=== PATIENT | male | born 1940 | race Caucasian/White ===

== ENCOUNTER 2017-11-26 08:04 | Day surgery (SDC) | payer OTHER ==
[~2017-11-26] VITALS: Ht 170.2 cm; Wt 75.0 kg
[~2017-11-26 08:04] MED LIST: AMIT50TA3 PO; BUSP10TA PO; CLON1TAB PO; CYAN100025 SL; LISI20TA PO; MORP1TAB25 PO; OMEP20TA93 PO; TANDCAP PO; [UNRECOGNIZED DRUG - CODE] SL
[2017-11-26 08:30] VITALS: BP 128/75; PULSE 63; RESP 18; TEMP 97.7; O2SAT 100
[2017-11-26] MEDS ORDERED: SODIUM CHLORIDE 0.9% 1000 ML IV SCH (08:30)
[2017-11-26] MEDS ORDERED: ceFAZolin 2 GM PREMIX 50 ML - implanted port/tunneled catheter insertion IV SCH (08:30)
[2017-11-26] MEDS ORDERED: ceFAZolin 2 GM PREMIX 50 ML - implanted port removal IV SCH (08:30)
[2017-11-26] MEDS ORDERED: POVIDONE IODINE 5% (ANTISEPSIS KIT) 4 APPLICATIONS EACH NARE SCH (08:30)
[2017-11-26] MEDS ORDERED: CHLORHEXIDINE GLUCONATE 2 % 1 PACK (2 CLOTHS) TOPICAL SCH (08:30)
[2017-11-26] MEDS ORDERED: VANCOMYCIN 1000 MG/NS 250 ML - implanted port/tunneled catheter IV SCH ×2 (08:30)
[2017-11-26] MEDS ORDERED: LIDOCAINE 1%/EPINEPHrine 1:100,000 SOLN 20 ML VIAL ONE (10:21)
[2017-11-26] MEDS ORDERED: fentaNYL CITRATE 250 MCG/5 ML AMP ONE (10:29)
[2017-11-26] MEDS ORDERED: MIDAZOLAM HCL 5 MG/5 ML VIAL ONE (10:30)
--- NOTE | 2017-11-26 11:32 | PD.RAD ---
Post Procedure Progress Note Pre Procedure Diagnosis: (1) HCC (hepatocellular carcinoma) (2) Pancytopenia Post Procedure Diagnosis: (1) Pancytopenia (2) HCC (hepatocellular carcinoma) Procedure Date: November 26, 2017 Supervising Radiologist: Jh James Proceduralist/Assist: Rose Mary Coronel, RT(R)(), Luis Antonio Mar RT(R) Anesthesia: Local, Analgesia, Conscious Sedation Plan of Activity Patient to Unit: ROPU Patient Condition: Good See PACS Report for procedural detail/treatment Central Venous Access Device Procedure 1 Right Internal Jugular Infusaport Placement single lumen Nam[place]ian: 8 Jh James MD November 26, 2017 11:32
[2017-11-26 11:35] VITALS: BP 120/66; PULSE 71; RESP 20; TEMP 97.5; O2SAT 93
[2017-11-26] MEDS ORDERED: SODIUM CHLORIDE 0.9% FLUSH 10 ML FLUSH IVF PRN (11:45)
[2017-11-26 11:50] VITALS: BP 123/72; PULSE 71; RESP 20; O2SAT 93
[2017-11-26 12:15] VITALS: BP 118/64; PULSE 71; RESP 20; O2SAT 94
[2017-11-26 12:45] VITALS: BP 119/69; PULSE 63; RESP 20; O2SAT 92
[2017-11-26 13:15] VITALS: BP 120/69; PULSE 63; RESP 20; O2SAT 94
--- NOTE | 2017-11-26 13:51 | RADRPT ---
EXAM DATE/TIME: 11/26/2017 11:22 [facility] COMPARISON: No previous studies available for comparison. INDICATIONS : Patient with a history of hepatocellular carcinoma. MEDICAL HISTORY : Anxiety Arthritis Bleeding problems Hepatocellular carcinoma Cirrhosis GERD Hemorrhoids Hep C Osteoarthritis SURGICAL HISTORY : Colonoscopy ENCOUNTER: Initial ACUITY: 2 weeks PAIN SCORE: 2/10 LOCATION: Right side FLUORO TIME: 0.30 minutes IMAGE SERIES: 1 SEDATION TIME: 30 minutes ACCESS: Right internal jugular vein SEDATION: 1.) 2.5 mg midazolam (Versed) IV 2.) 125 mcg fentanyl (Sublimaze) IV 3.) 1units Platelets IV Prophylactic antibiotics were administered with appropriate pre-procedure timing. Vancomycin within 2 hours of procedure, Ancef (or alternative) within 1 hour of procedure. DEVICE: 1. 8 Estonian single lumen Power port PROCEDURE : 1. Continuous pulse oximetry and EKG monitoring. 2. Intravenous conscious sedation. 3. Ultrasound guidance for venous access. 4. Fluoroscopic guided implantable central venous port placement. The patient was placed supine. The neck was prepped in sterile fashion. Full sterile technique was u sed, including cap, mask, sterile gloves and gown, and a large sterile sheet. Hand hygiene and 2% ch lorhexidine Betadine was utilized per protocol for cutaneous antisepsis with appropriate dry time for site. Sterile gel and sterile probe cover were utilized for ultrasound guidance. The skin and sub cutaneous tissues were infiltrated with local anesthetic solution. Patient's platelet count was around 50,000. A unit of platelets was ordered and infused during the pr ocedure to minimize bleeding. Under direct ultrasound guidance, central venous access was accomplished in the targeted vessel. The ultrasound images depicting access guidance were stored and saved to PACS for permanent record. A s ubcutaneous pocket was created using blunt dissection. The port was introduced to the pocket. The c atheter tubing was fed through a subcutaneous tunnel to the venotomy site. The catheter tubing was c ut to a suitable length and then was introduced through a valved Peel-Away sheath and positioned with catheter tubing tip at the cavo-atrial junction level. The pocket incision was closed with subcutic ular Vicryl suture. Steri-Strips were applied. The port was flushed and locked with heparin solutio n per protocol. Sterile dressing was applied to the site. The patient tolerated the procedure well. Conscious sedation was performed with the prescribed dosages and duration as above in the presence of an independent trained radiology nurse to assist in the monitoring of the patient. EKG and oximetry remained stable throughout the procedure. The patient tolerated the procedure well and there were no complications. The patient was sent to post anesthesia recovery in stable condition. CONCLUSION: Uncomplicated ultrasound and fluoroscopic guided implanted central venous port catheter placement as described in detail above. An 8 Estonian Power port was placed. Jh James MD on November 26, 2017 at 13:48 Board Certified Radiologist. This report was verified electronically.
== END 2017-11-26 13:45 | disposition home or self-care (01) ==
LOC: HRIP 08:04 → HROP 08:04
PROVIDERS: ATTEND Internal Medicine
DX: Z45.2 Encounter for adjustment and management of vascular access device (principal); C22.0 Liver cell carcinoma; D61.818 Other pancytopenia; B19.20 Unspecified viral hepatitis C without hepatic coma; K74.60 Unspecified cirrhosis of liver; K21.9 Gastro-esophageal reflux disease without esophagitis; M19.90 Unspecified osteoarthritis, unspecified site; F41.9 Anxiety disorder, unspecified
CPT/HCPCS: 36561; 76937; 77001; 99152; 99153; C1788; J0690; J1642; J2250; J3010; J3370; J7030; J7050; P9035; 36430

== ENCOUNTER 2017-12-01 08:22 | Day surgery (SDC) | payer OTHER ==
[~2017-12-01] VITALS: Ht 170.2 cm; Wt 75.0 kg
[2017-12-01 09:06] VITALS: BP 117/69; PULSE 73; RESP 18; TEMP 97.5; O2SAT 95
[2017-12-01] MEDS ORDERED: SODIUM CHLOR 0.9% 1000 ML IV SCH (09:30)
[2017-12-01] MEDS ORDERED: fentaNYL CITRATE 250 MCG/5 ML AMP ONE (09:54)
[2017-12-01] MEDS ORDERED: MIDAZOLAM HCL 5 MG/5 ML VIAL ONE (09:55)
[2017-12-01 10:21] LABS: AUTOMATED NEUTROPHIL # 0.6 TH/MM3 (1.8-7.7); BASOPHIL % 0.5 % (0.0-2.0); EOSINOPHIL % 3.4 % (0.0-4.0); HEMATOCRIT 21.3 % (39.0-51.0); LYMPH % 18.4 % (9.0-44.0); LYMPHOCYTE # 0.2 TH/MM3 (1.0-4.8); MEAN CELL VOLUME 81.4 FL (80.0-100.0); MEAN CORPUSCULAR HEMOGLOBIN 26.7 PG (27.0-34.0); MEAN CORPUSCULAR HGB CONC 32.8 % (32.0-36.0); MEAN PLATELET VOLUME 9.6 FL (7.0-11.0); MONO % 9.3 % (0.0-8.0); MONOCYTE # 0.1 TH/MM3 (0-0.9); NEUT % 68.4 % (16.0-70.0); PLATELET COUNT 41 TH/MM3 (150-450); RED BLOOD COUNT 2.62 MIL/MM3 (4.50-5.90); RED CELL DISTRIBUTION WIDTH 16.3 % (11.6-17.2); WHITE BLOOD COUNT 0.8 TH/MM3 (4.0-11.0)
[2017-12-01] MEDS ORDERED: LIDOCAINE HCL 1% 20 ML VIAL ONE (10:35)
[2017-12-01 10:59] LABS: BANDS 8 % (0-6); LYMPHOCYTES 12 % (9-44); MONOCYTES 10 % (0-8); NEUTROPHIL # MANUAL DIFF 0.6 TH/MM3 (1.8-7.7); OVALOCYTES 2+ (NORMAL); POLYS (SEG NEUTROPHILS) 64 % (16-70)
--- NOTE | 2017-12-01 12:02 | PD.RAD ---
Post Procedure Progress Note Pre Procedure Diagnosis: (1) HCC (hepatocellular carcinoma) (2) Pancytopenia Post Procedure Diagnosis: (1) HCC (hepatocellular carcinoma) (2) Pancytopenia Procedure Date: December 01, 2017 Supervising Radiologist: Ivan Nvees Estimated blood loss: 3cc Anesthesia: Local, Conscious Sedation Plan of Activity Patient to Unit: ROPU Patient Condition: Fair Additional Comments: Successful bone marrow biopsy of the right Iliac wing Samples sent to pathology Full dictated report to follow See PACS Report for procedural detail/treatment Ivan Neves MD December 01, 2017 12:02
[2017-12-01 12:15] VITALS: BP 126/71; PULSE 69; RESP 18; TEMP 98; O2SAT 97
[2017-12-01 12:30] VITALS: BP 124/69; PULSE 65; RESP 18; O2SAT 92
[2017-12-01 13:00] VITALS: BP 115/60; PULSE 67; RESP 18; O2SAT 98
--- NOTE | 2017-12-01 13:21 | RADRPT ---
EXAM DATE/TIME: 12/01/2017 11:24 [facility] COMPARISON: CT NEEDLE BIOPSY BONE MARROW, October 08, 2017, 11:59. INDICATIONS : Bone marrow biopsy. SEDATION TIME: 45 minutes BIOPSY SITE: Right iliac MEDICATION(S): 1.) 3 mg midazolam (Versed) IV 2.) 150 mcg fentanyl (Sublimaze) IV DEVICE(S): 1.) 11 gauge Bone marrow biopsy needle MEDICAL HISTORY : Hepatitis C. liver cancer, pancytopenia SURGICAL HISTORY : None. ENCOUNTER: Initial ACUITY: 1 day PAIN SCORE: 0/10 LOCATION: Right iliac A total of one core specimen(s) were obtained and sent to the laboratory for pathologic evaluation. PROCEDURE: 1. CT guided bone marrow biopsy. 2. Conscious sedation with continuous EKG and oximetry monitoring. 3. EKG and oximetry remained stable throughout the procedure. Prior to the procedure informed consent was obtained. Any appropriate prior imaging studies were rev iewed. Using automated exposure control and adjustment of the mA and/or kV according to patient size , radiation dose was kept as low as reasonably achievable to obtain optimal diagnostic quality images . DICOM format image data is available electronically for review and comparison. The site was prepped in a sterile fashion. Full sterile technique was used, including cap, mask, tomasa rile gloves and gown and a large sterile sheet. Hand hygiene and 2% chlorhexidine and/or betadine/al cohol prep was utilized per protocol for cutaneous antisepsis. The skin and subcutaneous tissues wer e infiltrated with local anesthetic solution. With CT guidance the previously identified target was localized. Biopsy was performed using the presc ribed needle as above. Following biopsy marrow aspiration was performed with repeat puncture. Adequa te hemostasis was obtained with compression at the puncture site. Follow-up CT scan reveals no hemorrhage. Conscious sedation was performed with the prescribed dosages and duration as above in the presence of an independent trained radiology nurse to assist in the monitoring of the patient. EKG and oximetry remained stable throughout the procedure. The patient tolerated the procedure well and there were no complications. The patient was sent to Radiology Outpatient Unit in stable condition. CONCLUSION: 1. Uncomplicated CT guided bone marrow aspirate. 2. Uncomplicated CT guided bone marrow biopsy. Ivan Neves MD on December 01, 2017 at 13:17 Board Certified Radiologist. This report was verified electronically.
[2017-12-01 13:30] VITALS: BP 120/66; PULSE 68; RESP 18; O2SAT 99
== END 2017-12-01 14:00 | disposition home or self-care (01) ==
LOC: HRAD 08:22 → HRIP 08:23 → HRAD 14:00
PROVIDERS: ATTEND Internal Medicine
DX: C22.0 Liver cell carcinoma (principal); D61.818 Other pancytopenia; B19.20 Unspecified viral hepatitis C without hepatic coma; K74.60 Unspecified cirrhosis of liver; D64.9 Anemia, unspecified; Z79.82 Long term (current) use of aspirin
CPT/HCPCS: 38222; 77012; 85007; 85027; 85097; 88184; 88185; 88237; 88264; 88280; 88305; 88311; 88313; 99152; 99153; C1830; J1642; J2250; J3010; J7030

== ENCOUNTER 2018-01-12 14:22 | Day surgery (SDC) | payer OTHER ==
[2018-01-12 14:39] VITALS: BP 137/56; PULSE 74; RESP 18; TEMP 97.5; O2SAT 96
[2018-01-13] MEDS ORDERED: MSIR30 PO (10:04)
--- NOTE | 2018-01-13 11:19 | RADRPT ---
EXAM DATE: 01/13/2018 9:33 AM EDT AGE/SEX: 77 years / Male INDICATIONS: PT IS SCHEDULE FOR AN ANGIO WITH CHEMO EMBOLIZATION HISTORY OF PRESENT ILLNESS: 77-year-old male with history of EtOH and hepatitis C cirrhosis with 4.4 cm hepatocellular carcinoma in segment 2 of the liver. Patient is status post intramedullary emboliz ation at [facility] last year with apparent moderately severe post embolic syndrome. Most recent PET/CT examination performed in October demonstrates persistence prominent PET activity in this lesion without evidence for extrahepatic disease. Despite cirrhosis and evidence for portal hypertension on imaging, liver function tests are within normal limits although patient does have thrombocytopenia. He has an excellent functional status (ECOG 0) and is accompanied by his on this visit. TEMPERATURE: 97.5 HEART RATE: 74 BLOOD PRESSURE: 137/56 RESPIRATIONS: 18 OXIMETRY: 96 PNEUMONIA VACCINE: 2017 MEDICAL/SURGICAL HISTORY: Hypertension. PT IS SCHEDULE TOMORROW FOR A LIVER MASS EMBOLIZATION P ARTIAL LEFT NEPHRECTOMY COMPARISON: [facility], PET/CT TUMOR, 10/28/2017. . SOCIAL HISTORY: No alcohol use. SMOKING HISTORY: ALLERGIES: ASPIRIN AND ACETAMENOPHENAMITR MEDICATIONS: AMYTRIPTILINE BUSPORON CLONAZEPAM FENTANYL LISINOPRIL MORPHINE OMEPRAZOLE TANDEM PHYSICAL EXAM: General: No acute distress HEART: Normal right and rhythm. No significant murmurs. ABDOMEN: Soft, nontender nondistended. LABS: CMP performed last week is within normal limits. IMAGING STUDIES: PET/CT dated 10/28/2017 is reviewed. There is a 4.4 cm hypermetabolic segment 2 hepatic mass. No evide nce for extra hepatic disease. Liver appears cirrhotic with recanalized periumbilical vein and spleno megaly. No ascites. ASSESSMENT: 77-year-old male with history of EtOH and hep C cirrhosis and portal hypertension with persistent 4.4 cm hepatocellular carcinoma in segment 2 of the liver despite prior Y90 embolization. Given intact l iver function and good functional status, I believe he is a good candidate for combination HELEN TACE a nd microwave ablation with curative intent. I had a discussion with Dr. Carpenter regarding apparent 12 0 brooks dose that patient received at [facility]. Decision is to defer SBFT at this time pending response to locoregional treatment. Extensive discussion regarding risks and benefits with the patient and his . All questions were a nswered. PLAN: HELEN Tace and microwave ablation of 4.4 cm left hepatic lobe segment 2 mass. TIME SPENT: 30 minutes. Electronically signed by: Melvin Rajput MD 01/13/2018 11:18 AM EDT
== END 2018-01-12 15:30 | disposition home or self-care (01) ==
LOC: HROP 14:22 → HRIP 14:23 → HROP 15:30
PROVIDERS: ATTEND Specialist
DX: C22.1 Intrahepatic bile duct carcinoma (principal); I10 Essential (primary) hypertension; K74.60 Unspecified cirrhosis of liver; K76.6 Portal hypertension
CPT/HCPCS: 99212; G0463